=== PATIENT | female | born 1990 | race Caucasian/White ===

== ENCOUNTER 2018-01-01 21:38 | Emergency (ER) | payer MEDICAID ==
--- NOTE | 2018-01-01 22:03 | ED Physician Chart ---
ED Chief Complaint/HPI - Patient Information Date Seen:: 01/01/18 Time Seen:: 21:48 Chief Complaint:: Vaginal bleeding History of Present Illness:: This is a 27 yo female who states that she has some vaginal bleeding that started this pm. She states that she has been to the hospital twice for this already. she is G= 3 P=1 AB=1 AND DENIES DIABETES, HYPERTENSION AND ALL OTHER DISEASES. SHE ADMITS TO SMOKING. Allergies:: Allergies Allergy/AdvReac Type Severity Reaction Status Date / Time No Known Allergies Allergy Verified 01/01/18 21:52 Vitals:: Vital Signs - 8 hr 01/01/18 21:38 Temp 98.1 F HR 92 RR 20 BP 109/62 O2 Sat % 100 Historian:: Patient Review:: Nurse's Note Reviewed ED Review of Systems - Review of Systems General/Constitutional: No fever, No chills, No weight loss, No weakness, No diaphoresis, No edema, No loss of appetite Skin: No skin lesions, No rash, No bruising Head: No headache, No light-headedness Eyes: No loss of vision, No pain, No diplopia ENT: No earache, No nasal drainage, No sore throat, No tinnitus Neck: No neck pain, No swelling, No thyromegaly, No stiffness, No mass noted Cardio Vascular: No chest pain, No palpitations, No PND, No orthopnea, No edema Pulmonary: No SOB, No cough, No sputum, No wheezing GI: No nausea, No vomiting, No diarrhea, No pain, No melena, No hematochezia, No constipation, No hematemesis G/U: No dysuria, No frequency, No hematuria 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: Abnormal vaginal bleeding Musculoskeletal: No bone or joint pain, No back pain, No muscle pain Endocrine: No polyuria, No polydipsia Psychiatric: No prior psych history, No depression, No anxiety, No suicidal ideation Hematopoietic: No bruising, No lymphadenopathy Allergic/Immuno: No urticaria, No angioedema Neurological: No syncope, No focal symptoms, No weakness, No paresthesia, No headache, No seizure, No dizziness, No confusion, No vertigo ED Past Medical History - Past Medical History Obtainable: Yes Past Medical History: No significant medical hx Family History: None Social History: Smoker, Alcohol, Illicit Drug Use Surgical History: None Medication: Reviewed Family Medical History - Family Member Mother History Unknown: Yes ED Physical Exam - Physical Examination General/Constitutional: Awake, Well-developed, well-nourished, Alert, No distress, GCS 15, Non-toxic appearing, Ambulatory Head: Atraumatic Eyes: Lids, conjuctiva normal, PERRL, EOMI Skin: Nl inspection, No rash, No skin lesions, No ecchymosis, Well hydrated, No lymphadenopathy ENMT: External ears, nose nl, Nasal exam nl, Lips, teeth, gums nl Neck: Nontender, Full ROM w/o pain, No JVD, No nuchal rigidity, No bruit, No mass, No stridor Respiratory: Nl effort/Exclusion, Clear to Auscultation, No Wheeze/Rhonchi/Rales Cardio Vascular: RRR, No murmur, gallop, rubs, NL S1 S2 GI: No tenderness/rebounding/guarding, No organomegaly, No hernia, Normal BS's, Nondistended, No mass/bruits, No McBurney tenderness : No CVA tenderness Extremities: No tenderness or effusion, Full ROM, normal strength in all extremities, No edema, Normal digits & nails Neuro/Psych: Alert/oriented, DTR's symmetric, Normal sensory exam, Normal motor strength, Judgement/insight normal, Mood normal, Normal gait, No focal deficits Misc: Normal back, No paraspinal tenderness ED Labs/Radiology/EKG Results - Lab Results Results: Abnormal Lab Results 01/01/18 01/01/18 01/01/18 22:23 22:23 22:23 WBC 10.7 RBC 4.28 Hgb 13.1 Hct 39.2 L MCV 91.7 MCH 30.7 MCHC Differential 33.5 RDW 13.5 Plt Count 323 MPV 8.1 Neutrophils % 42.5 Lymphocytes % 49.0 Monocytes % 7.4 Eosinophils % 1.0 Basophils % 0.1 PT 10.4 INR 1.00 Sodium 138 Potassium 3.6 Chloride 105 Carbon Dioxide 25.4 Anion Gap 11.2 BUN 11 Creatinine 0.6 Est GFR ( Amer) > 60.0 Est GFR (Non-Af Amer) > 60.0 BUN/Creatinine Ratio 18.3 Glucose 81 Calcium 9.7 Total Bilirubin 0.2 L AST 15 ALT 10 Alkaline Phosphatase 33 L Total Protein 7.1 Albumin 4.7 Globulin 2.4 Albumin/Globulin Ratio 2.0 H - Radiology Results Results: PELVIC ULTRASOUND = EARLY IUP ED Assessment - Assessment General Assessment: EARLY VAGINAL BLEEDING ED Septic Shock - . Is Septic Shock (SBP<90, OR Lactate>4 mmol\L) present?: No - <6hrs of presentation: Vital Signs: Vital Signs - 8 hr 01/01/18 21:38 Temp 98.1 F HR 92 RR 20 BP 109/62 O2 Sat % 100 ED Reassessment (Disposition) - Reassessment Reassessment Condition:: Improved - Diagnosis Diagnosis:: VAGINAL BLEEDING EARLY - Aftercare/Follow up Instructions Aftercare/Follow-Up Instructions:: Counseled pt regarding lab results/diagnosis & need follow up, Refer to Discharge Instructions, Counseled pt & family regarding lab results/diagnosis & need follow up Notes:: THE PATIENT WAS TOLD COMPLETE BED REST AND SEE A [employer] INSTALLER DOCTOR [facility] TO BE FOLLOWED CLOSELY. GIVE YOUR LAB WORK TO THE [employer] INSTALLER COL[facility]. - Patient Disposition Discharge/Transfer:: Home Condition at Disposition:: Improved ED Discharge Plan - Patient Disposition Admit/Discharge/Transfer: PT DISCHARGED HOME Condition at Disposition: Improved Instructions: Vaginal Bleeding During , First Trimester Additional Instructions: Bedrest until follows up with stem shaper. Follow up with stem shaper within 2 -3 days.
[2018-01-01 22:34] LABS: % BASOPHILS 0.1 % (0.0-2.0); % MONOCYTES 7.4 % (2.0-10.0); % NEUTROPHILS 42.5 % (40.0-80.0); EOSINOPHILE ABSOLUTE 0.1 Th/cmm (0.1-0.4); HEMATOCRIT 39.2 % (41.0-60); HEMOGLOBIN 13.1 gm/dL (12-16); LYMPHOCYTE ABSOLUTE 5.3 Th/cmm (1.5-3.0); MEAN CELL VOLUME 91.7 fl (81-100); MEAN CORPUSCULAR HEMOGLOBIN 30.7 pg (27.0-31.0); MEAN CORPUSCULAR HGB CONC 33.5 pg (28.0-36.0); MEAN PLATELET VOLUME 8.1 fl; MONOCYTE ABSOLUTE 0.8 Th/cmm (0.3-1.0); NEUTROPHILE ABSOLUTE 4.5 Th/cmm (1.8-8.0); PLATELET COUNT 323 Th/cmm (150-400); RED BLOOD COUNT 4.28 Mil/cmm (3.80-5.10); RED CELL DISTRIBUTION WIDTH 13.5 % (11.5-20.0); WHITE BLOOD COUNT 10.7 Th/cmm (4.8-10.8)
[2018-01-01 22:48] LABS: ALBUMIN 4.7 gm/dL (3.7-5.3); ALKALINE PHOSPHATASE 33 U/L (34-104); ANION GAP 11.2 (7.0-16.0); BILIRUBIN,TOTAL 0.2 mg/dL (0.3-1.0); BUN - UREA NITROGEN 11 mg/dL (7-25); CALCIUM SERUM 9.7 mg/dL (8.6-10.3); CARBON DIOXIDE 25.4 mEq/L (21.0-31.0); CHLORIDE 105 mEq/L (98-107); CREATININE - SERUM 0.6 mg/dL (0.6-1.2); GFR AFRICAN-AMERICAN > 60.0 ml/min (>90); GFR NON AFRICAN-AMERICAN > 60.0 ml/min; GLUCOSE 81 mg/dL (70-105); POTASSIUM SERUM 3.6 mEq/L (3.5-5.1); SGOT 15 U/L (13-39); SGPT/ALT 10 U/L (7-52); SODIUM SERUM 138 mEq/L (136-145); TOTAL PROTEIN,SERUM 7.1 gm/dL (6.0-8.3)
[2018-01-01 22:51] LABS: PROTHROMBIN TIME (TEST) 10.4 SECONDS (9.5-11.5)
[2018-01-01] MEDS ORDERED: Sodium Chloride 0.9% 1,000 ML IV ONE (23:09)
[2018-01-01 23:48] LABS: URINE MICROSCOPIC INDICATED? YES; URINE SOURCE CLEAN C
[2018-01-02 00:02] LABS: URINE BILIRUBIN NEGATIVE (NEGATIVE); URINE BLOOD LARGE (NEGATIVE); URINE GLUCOSE (UA) NEGATIVE (NEGATIVE); URINE KETONE NEGATIVE (NEGATIVE); URINE LEUKOCYTE ESTERASE NEGATIVE (NEGATIVE); URINE NITRATE NEGATIVE (NEGATIVE); URINE PH 8.5 (4.6 - 8.0); URINE PROTEIN NEGATIVE (NEGATIVE); URINE UROBILINOGEN 0.2 E.U./dL (0.2 - 1.0)
[2018-01-02 00:05] LABS: URINE CLARITY SLIGHT CLOUDY (CLEAR); URINE COLOR ORANGE
[2018-01-02 00:09] LABS: URINE BACTERIA FEW /hpf (NONE SEEN); URINE EPITHELIAL CELLS OCCASIONAL /lpf (FEW); URINE OTHER CRYSTALS MODERATE /hpf
[2018-01-02 00:15] LABS: AMPHETAMINE URINE NEGATIVE (NEGATIVE); BARBITURATES URINE NEGATIVE (NEGATIVE); BENZODIAZEPINES QUAL URINE NEGATIVE (NEGATIVE); CANNABINOID THC NEGATIVE (NEGATIVE); COCAINE METABOLITE QUAL URINE NEGATIVE (NEGATIVE); METHADONE URINE NEGATIVE (NEGATIVE); METHAMPHETAMINES QUAL URINE NEGATIVE (NEGATIVE); OPIATES (MORPHINE) QUAL. URINE NEGATIVE (NEGATIVE); PHENCYCLIDINE (PCP) URINE NEGATIVE (NEGATIVE); TRICYCLICS (TCA) QUAL. URINE NEGATIVE (NEGATIVE)
--- NOTE | 2018-01-02 08:37 | Diagnostic Imaging Report ---
OB ultrasound HISTORY: Abnormal bleeding Transvaginal sonographic technique utilized. The uterus measures 9.7 x 4.9 x 7.3 cm. There is suggestion of fluid within the endometrial canal and endocervical canal. In view the patient's history, findings most likely related to hematoma. There is an approximate 5 mm sonolucent focus within the lower uterus. An early gestational sac cannot be excluded. No pole identified. No cardiac activity is seen. Multiple somewhat tubular serpiginous densities noted throughout the periphery of the uterus. Findings suggest dilated vessels. Similar changes noted within the adnexal areas. A 2.0 cm sonolucent lesion consistent with a cyst noted in the right adnexal area. Small amount of free fluid seen in the lower pelvis. IMPRESSION: 1. Evidence of a small amount of fluid within the endometrial and endocervical canal that may be related to hematoma. 2. Questionable early gestational sac. Viability cannot be confirmed. A follow-up ultrasound exam in one week and/or correlation with hCG values recommended. 3. Rather prominent tubular serpiginous densities within the periphery of the uterus and in the adnexal area suggesting dilated vessels. Exact significance and etiology uncertain. Clinical correlation is needed. 4. 2.0 cm right ovarian cyst. 5. Small amount of fluid within the cul-de-sac region of the pelvis. As no definitive intrauterine gestation is identified, an ectopic gestation cannot be excluded in the presence of a positive test. Clinical correlation and follow-up is needed.
== END 2018-01-02 01:25 | disposition home or self-care (01) ==
LOC: ER 21:38
DX: O46.91 Antepartum hemorrhage, unspecified, first trimester (principal); O99.331 Smoking (tobacco) complicating pregnancy, first trimester; Z3A.00 Weeks of gestation of pregnancy not specified
CPT/HCPCS: 36415-UA; 76801-TC; 80053-TC; 80307; 81001-TC; 81003-TC; 81025-TC; 85025-TC; 85610-TC; J7030